=== PATIENT | female | born 1955 | race Caucasian/White ===

== ENCOUNTER 2018-11-10 09:58 | Emergency (ER) | payer MEDICARE ==
--- NOTE | 2018-11-10 10:08 | ER Report ---
History and Physical Time Seen By MD: 10:04 Hx. of Stated Complaint: RIGHT EAR PAIN HPI/ROS CHIEF COMPLAINT: Right otalgia HISTORY OF PRESENT ILLNESS: Patient is a 63-year-old female here with complaints of right ear pain, pain in the right temporal distribution which has been worsening over the past 24 hours. Patient also reports having sinus pain as well. Denies fevers or chills. Patient is tolerating oral intake without issues. Patient is hemodynamically stable at time of evaluation REVIEW OF SYSTEMS: Constitutional: No fever, no chills. Eyes: No discharge. ENT: No sore throat. + Right otalgia, pain in the right temporal distribution. Cardiovascular: No chest pain, no palpitations. Respiratory: No cough, no shortness of breath. Skin: No rashes. No erythema Neurological: Neurovascular exam intact, cranial nerves intact Allergies: Coded Allergies: codeine (Verified Allergy, Intermediate, N/V, 11/10/18) meperidine (Verified Allergy, Intermediate, 11/10/18) atorvastatin (Verified Allergy, Unknown, 11/10/18) Home Meds Active Scripts Amoxicillin/Pot Clav 875-125 Mg Tab (AUGMENTIN 875-125 TABLET) 1 Each Tablet, 1 TAB PO Q12H for 7 Days, #14 TAB Prov:LEONID CARVER DO 11/10/18 Constitutional Vital Sign - Last 24 Hours 11/10/18 10:05 Temp 97.7 Pulse 88 Resp 16 B/P (MAP) 152/108 Pulse Ox 94 O2 Delivery Room Air Physical Exam General Appearance: The patient is alert, has no immediate need for airway protection and no signs of toxicity. No acute distress Eyes: Pupils equal and round no pallor or injection. ENT, Mouth: Mucous membranes are moist. Tympanic membranes are nonerythematous, nonbulging, patient is tender on palpation of the right temporal distribution Respiratory: There are no retractions, lungs are clear to auscultation. Neurological: No focal neurological deficits, cranial nerves intact Skin: Warm and dry, no rashes. No erythema Musculoskeletal: Neck is supple non tender. DIFFERENTIAL DIAGNOSIS: After history and physical exam differential diagnosis was considered for otitis media, otitis externa, temporal arteritis, trigeminal neuralgia, TMJ syndrome Medical Decision Making Data Points Result Diagram: 11/10/18 1025 Laboratory Hematology Test 11/10/18 10:25 White Blood Count 7.1 k/uL (4.5-11.0) Red Blood Count 4.52 M/uL (4.17-5.56) Hemoglobin 14.1 g/dL (12.0-16.0) Hematocrit 41.2 % (34.0-47.0) Mean Corpuscular Volume 91.1 fL (80.0-96.0) Mean Corpuscular Hemoglobin 31.1 pg (26.0-33.0) Mean Corpuscular Hemoglobin Concent 34.1 g/dL (32.0-36.0) Red Cell Distribution Width 14.2 % (11.5-14.5) Platelet Count 259 K/uL (150-450) Mean Platelet Volume 8.9 fL (7.2-11.1) Neutrophils (%) (Auto) 52.6 % (39.4-72.5) Lymphocytes (%) (Auto) 32.8 % (17.6-49.6) Monocytes (%) (Auto) 9.3 % (4.1-12.4) Eosinophils (%) (Auto) 4.2 % (0.4-6.7) Basophils (%) (Auto) 1.1 % (0.3-1.4) Nucleated RBC Relative Count (auto) 0.0 /100WBC Neutrophils # (Auto) 3.7 K/uL (2.0-7.4) Lymphocytes # (Auto) 2.3 K/uL (1.3-3.6) Monocytes # (Auto) 0.7 K/uL (0.3-1.0) Eosinophils # (Auto) 0.3 K/uL (0.0-0.5) Basophils # (Auto) 0.1 K/uL (0.0-0.1) Nucleated RBC Absolute Count (auto) 0.00 K/uL Erythrocyte Sedimentation Rate 9 mm/HOUR (0-30) Chemistry Test 11/10/18 10:25 C-Reactive Protein < 0.5 mg/dl (<1.0) ED Course/Re-evaluation ED Course Patient is a 63-year-old female here with complaints of right-sided temporal pain and right otalgia. There is only mild erythema of the right tympanic membrane without bulging or air-fluid levels. Patient was tender on palpation of the right temporal distribution prompting a CBC, ESR, CRP to rule out temporal arteritis. Patient also did complain of sinus pain and fullness, prescription provided for Augmentin and recommended close PCP follow-up. Patient was stable at time of discharge. Return precautions provided. Decision to Disposition Date: Nov 10, 2018 Decision to Disposition Time: 11:04 Depart Departure Latest Vital Signs Vital Signs Date Time Temp Pulse Resp B/P (MAP) Pulse Ox O2 Delivery O2 Flow Rate FiO2 11/10/18 10:05 97.7 88 16 152/108 94 Room Air Impression: Primary Impression: Otalgia of right ear Condition: Improved Disposition: HOME OR SELF-CARE New Scripts Amoxicillin/Pot Clav 875-125 Mg Tab (AUGMENTIN 875-125 TABLET) 1 Each Tablet 1 TAB PO Q12H for 7 Days, #14 TAB Prov: LEONID CARVER DO 11/10/18 Patient Instructions: Sinusitis (ED) Additional Instructions: Please drink plenty of water. Please follow-up with your primary care provider next 24-48 hours for reevaluation. Please take Augmentin 1 tablet twice daily for 7 days. Please return promptly if you develop visual changes, worsening pain, fevers, difficulty chewing or swallowing, nausea and vomiting. LEONID CARVER DO Nov 10, 2018 10:08
[2018-11-10 10:41] LABS: PLATELET COUNT, AUTOMATED 259 K/uL (150-450)
[2018-11-10] MEDS ORDERED: AMOX-559 PO (11:01)
[2018-11-10 11:12] VITALS: BP 123/71
== END 2018-11-10 11:13 | disposition home or self-care (01) ==
LOC: ER 10:14
DX: H92.01 Otalgia, right ear (principal)
CPT/HCPCS: 36415; 85025; 85651; 86140; 99282